=== PATIENT | female | born 1975 | race Caucasian/White ===

== ENCOUNTER 2018-05-30 22:59 | Inpatient (IN) | payer BC ==
[~2018-05-30] VITALS: Ht 162.6 cm; Wt 104.0 kg
[2018-05-31 00:01] LABS: PLATELET COUNT 431 x10^3mcL (130-400); RED CELL DISTRIBUTION WIDTH 26.8 % (11.5-14.5)
[2018-05-31 00:12] LABS: BAND NEUTROPHIL 7 % (0-10); MONOCYTE 1 % (0-7); SEGMENTED NEUTROPHILS 90 % (37-75); rbc morphology (normal/abnorm) ABNORMAL (NORMAL)
[2018-05-31 00:28] LABS: ALKALINE PHOSPHATASE 153 U/L (46-116); ALT/SGPT 15 U/L (14-59); AST/SGOT 17 U/L (15-37); BILIRUBIN TOTAL 0.2 mg/dL (0.20-1.00); CALCIUM 8.7 mg/dL (8.5-10.1); CARBON DIOXIDE 26.7 mmol/L (21-32); CHLORIDE SERUM 101 mmol/L (98-107); CREATININE SERUM 0.9 mg/dL (0.6-1.0); GFR1 > 60 mL/min; GLUCOSE SERUM 126 mg/dL (74-106); LIPASE 388 IU/L (73-393); SODIUM SERUM 139 mmol/L (136-145); TOTAL PROTEIN, SERUM 6.8 g/dL (6.4-8.2)
[2018-05-31 00:52] LABS: POTASSIUM SERUM 2.9 mmol/L (3.5-5.1)
[2018-05-31 08:04] VITALS: BP 106/69
[2018-05-31 09:49] VITALS: BP 106/69
[2018-05-31 11:37] VITALS: BP 102/65
[2018-05-31 15:19] VITALS: BP 114/75
[2018-06-01 05:21] LABS: PLATELET COUNT 331 x10^3mcL (130-400)
[2018-06-01 05:25] LABS: BASOPHIL % 0 % (0-2); RED CELL DISTRIBUTION WIDTH 26.3 % (11.5-14.5)
[2018-06-01 05:45] LABS: CALCIUM 8.1 mg/dL (8.5-10.1); CARBON DIOXIDE 27.5 mmol/L (21-32); CHLORIDE SERUM 106 mmol/L (98-107); CREATININE SERUM 0.6 mg/dL (0.6-1.0); GFR1 > 60 mL/min; GLUCOSE SERUM 279 mg/dL (74-106); POTASSIUM SERUM 4.1 mmol/L (3.5-5.1); SODIUM SERUM 142 mmol/L (136-145)
[2018-06-01 07:55] VITALS: BP 149/81
[2018-06-01 08:15] VITALS: Ht 162.6 cm; Wt 104.0 kg
[2018-06-01 11:34] LABS: BASOPHIL % 0 % (0-2); PLATELET COUNT 376 x10^3mcL (130-400)
[2018-06-01 12:30] VITALS: BP 144/93
[2018-06-01 18:46] VITALS: BP 145/79
[2018-06-01 21:21] VITALS: BP 131/73
[2018-06-02 05:48] VITALS: BP 138/84
[2018-06-02 06:36] LABS: CALCIUM 8.5 mg/dL (8.5-10.1); CHLORIDE SERUM 105 mmol/L (98-107); CREATININE SERUM 0.6 mg/dL (0.6-1.0); GFR1 > 60 mL/min; GLUCOSE SERUM 235 mg/dL (74-106); POTASSIUM SERUM 3.5 mmol/L (3.5-5.1); SODIUM SERUM 141 mmol/L (136-145)
[2018-06-02 08:20] LABS: PLATELET COUNT 446 x10^3mcL (130-400); RED CELL DISTRIBUTION WIDTH 24.1 % (11.5-14.5)
[2018-06-02 10:29] VITALS: BP 132/78
[2018-06-02 12:47] LABS: BAND NEUTROPHIL 5 % (0-10); METAMYELOCTE 1 % (0-2); MONOCYTE 7 % (0-7); SEGMENTED NEUTROPHILS 78 % (37-75); rbc morphology (normal/abnorm) ABNORMAL (NORMAL)
[2018-06-02 12:48] LABS: PLATELET MORPHOLOGY PLATELETS INCREASED; burr cell (echinocyte) 2+; ovalocyte/elliptocyte 1+
[2018-06-02 14:49] VITALS: BP 139/84
[2018-06-02 16:06] VITALS: BP 139/84
[2018-06-02 18:08] VITALS: BP 141/84
[2018-06-02 20:31] VITALS: BP 145/82
[2018-06-02] MEDS ORDERED: SIMVASTATIN10 M1 PO ×2 (21:48→21:52)
[2018-06-02] MEDS ORDERED: GLIMEPIRIDE4 M1 PO (21:53)
[2018-06-02] MEDS ORDERED: SYNTHROID0.1 MG PO (21:54)
[2018-06-02] MEDS ORDERED: METFORMIN HCL1000 MG PO (21:55)
[2018-06-02] MEDS ORDERED: LIALDA1.2 GM PO (22:00)
[2018-06-02] MEDS ORDERED: PREDNISONE20 MG PO (22:00)
[2018-06-02] MEDS ORDERED: LAC PO (22:01)
[2018-06-02] MEDS ORDERED: VITAMIN-D1000 IU PO (22:07)
[2018-06-02] MEDS ORDERED: HUMALOG100 U/ML SQ (22:08)
[2018-06-02] MEDS ORDERED: LANTUS SOLOS100 U/M1 SC (22:11)
[2018-06-03 05:56] VITALS: BP 163/93
[2018-06-03 09:09] LABS: PLATELET COUNT 573 x10^3mcL (130-400); RED CELL DISTRIBUTION WIDTH 26.3 % (11.5-14.5)
[2018-06-03 09:10] LABS: CALCIUM 8.7 mg/dL (8.5-10.1); CARBON DIOXIDE 29.7 mmol/L (21-32); CHLORIDE SERUM 104 mmol/L (98-107); CREATININE SERUM 0.7 mg/dL (0.6-1.0); GFR1 > 60 mL/min; GLUCOSE SERUM 318 mg/dL (74-106); POTASSIUM SERUM 3.8 mmol/L (3.5-5.1); SODIUM SERUM 142 mmol/L (136-145)
[2018-06-03 09:25] VITALS: BP 140/87
[2018-06-03 10:28] LABS: BAND NEUTROPHIL 5 % (0-10); MONOCYTE 6 % (0-7); SEGMENTED NEUTROPHILS 71 % (37-75)
[2018-06-03 10:33] LABS: rbc morphology (normal/abnorm) ABNORMAL (NORMAL)
[2018-06-03 10:34] LABS: PLATELET MORPHOLOGY PLATELETS INCREASED; acanthocyte (spur cell) 1+; burr cell (echinocyte) 2+
[2018-06-03 13:04] VITALS: BP 140/87
[2018-06-03 13:14] VITALS: BP 148/72
[2018-06-03 16:52] VITALS: BP 150/88
[2018-06-03 21:45] VITALS: BP 146/94
[2018-06-04 05:28] VITALS: BP 140/85
[2018-06-04 06:57] LABS: CALCIUM 8.4 mg/dL (8.5-10.1); CARBON DIOXIDE 34.3 mmol/L (21-32); CHLORIDE SERUM 106 mmol/L (98-107); CREATININE SERUM 0.6 mg/dL (0.6-1.0); GFR1 > 60 mL/min; GLUCOSE SERUM 258 mg/dL (74-106); POTASSIUM SERUM 3.7 mmol/L (3.5-5.1); SODIUM SERUM 143 mmol/L (136-145)
[2018-06-04 07:30] LABS: RED CELL DISTRIBUTION WIDTH 26.5 % (11.5-14.5)
[2018-06-04 07:31] LABS: PLATELET COUNT 582 x10^3mcL (130-400)
[2018-06-04 08:58] VITALS: BP 115/78
[2018-06-04 12:42] LABS: BAND NEUTROPHIL 7 % (0-10); METAMYELOCTE 1 % (0-2); MONOCYTE 4 % (0-7); MYELOCYTE 1 % (0-2); SEGMENTED NEUTROPHILS 67 % (37-75); rbc morphology (normal/abnorm) ABNORMAL (NORMAL)
[2018-06-04 12:43] LABS: acanthocyte (spur cell) 1+
[2018-06-04 12:44] LABS: PLATELET MORPHOLOGY PLATELETS INCREASED; burr cell (echinocyte) 2+; ovalocyte/elliptocyte 1+; tear drop cell (dacryocyte) 1+
[2018-06-04 13:17] VITALS: BP 140/91
[2018-06-04 16:31] VITALS: BP 140/91
[2018-06-04 17:20] VITALS: BP 136/83
== END 2018-06-04 18:45 | disposition short-term general hospital (02) | DRG 871 ==
LOC: ED 22:59 → IC 05-31 02:44 → DU 06-01 16:21
PROVIDERS: Emergency Medicine; Internal Medicine
DX: A41.9 Sepsis, unspecified organism (principal); R65.21 Severe sepsis with septic shock; J96.01 Acute respiratory failure with hypoxia; K51.90 Ulcerative colitis, unspecified, without complications; K63.2 Fistula of intestine; A04.72 Enterocolitis due to Clostridium difficile, not specified as recurrent; K57.80 Diverticulitis of intestine, part unspecified, with perforation and abscess without bleeding; E87.6 Hypokalemia; W18.39XA Other fall on same level, initial encounter; Y93.89 Activity, other specified; Y92.89 Other specified places as the place of occurrence of the external cause; Y99.8 Other external cause status; E66.01 Morbid (severe) obesity due to excess calories; Z68.37 Body mass index [BMI] 37.0-37.9, adult; R55 Syncope and collapse; D64.9 Anemia, unspecified; E11.65 Type 2 diabetes mellitus with hyperglycemia
CPT/HCPCS: 82962; 87046; 87046-59; 94150; A9698; C9113; J1815; J2543; J2916; J2920; J3370; J3480; J3490; J7030; J7042; J7050; J7512; Q0092; Q9967